=== PATIENT | female | born 1980 | race Caucasian/White ===

== ENCOUNTER 2018-05-10 13:42 | Emergency (ER) | payer MEDICAID ==
[~2018-05-10 13:42] MED LIST: AMOX-559 PO; DOXY-179 PO; KET10 PO
--- NOTE | 2018-05-10 14:33 | ER Report ---
History and Physical Time Seen By MD: 14:33 HPI/ROS CHIEF COMPLAINT: Right ankle pain HISTORY OF PRESENT ILLNESS: 37-year-old female patient presents to emergency room with complaint of right ankle pain. Patient states she's been having pain for the last 2-6 weeks. She states that pain often will occur at night. She states the pain does come and go. She states the pain is from the medial aspect of the ankle up approximately 10 cm. She states that sometimes she has pain with driving. She denies having any injury to the ankle. She states that nothing seems to make the pain better or worse. Patient states she is not taking any medication for this. She states that she is not sure why she is having so much p ain. REVIEW OF SYSTEMS: Respiratory: No cough, no dyspnea. Cardiovascular: No chest pain, no palpitations. Gastrointestinal: No vomiting, no abdominal pain. Musculoskeletal: As noted above Allergies: Coded Allergies: No Known Drug Allergies (Unverified , 06/25/16) Home Meds Active Scripts Diclofenac Sodium (DICLOFENAC SODIUM) 75 Mg Tablet.dr, 75 MG PO BID, #20 TAB Prov:KATIE LAUREN 05/10/18 Amoxicillin/Pot Clav 875-125 Mg Tab (AUGMENTIN 875-125 TABLET) 1 Each Tablet, 1 TAB PO Q12H, #20 TAB Prov:KATIE LAUREN 06/25/16 Past Medical/Surgical History Patient has a past medical history of frequent UTI, bipolar. Patient denies any surgical history. Reviewed Nurses Notes: Yes Hx Smoking: Yes Hx Substance Use Disorder: No Hx Alcohol Use: No Constitutional Vital Sign - Last 24 Hours 05/10/18 14:50 Temp 98.3 Pulse 94 Resp 18 B/P (MAP) 125/89 Pulse Ox 94 O2 Delivery Room Air Physical Exam General Appearance: The patient is alert, has no immediate need for airway protection and no current signs of toxicity. Respiratory: Chest is non tender, lungs are clear to auscultation. Cardiac: regular rate and rhythm Gastrointestinal: Abdomen is soft and non tender, no masses, bowel sounds normal. Musculoskeletal: Neck: Neck is supple and non tender. Extremities have full range of motion and are non tender. Patient has no tenderness, no swelling noted of the right ankle. There is no bruising noted. Patient had good strength with flexion and extension. Skin: No rashes or lesions. DIFFERENTIAL DIAGNOSIS: After history and physical exam differential diagnosis was considered for fracture, gout, strain. Medical Decision Making EKG/Imaging Imaging Right ankle, 3 views. HISTORY: Ankle pain and locking. COMPARISON: None. Minimal chronic appearing trabecular irregularities are present in the inferior tip of the medial malleolus. The bones, joints, and soft tissues are otherwise unremarkable. No widening of the ankle mortise. No acute fractures are identified. IMPRESSION: Negative for acute bony abnormality. Report Dictated By: Fernandez Rdz MD at 05/10/2018 2:43 PM Report E-Signed By: Fernandez Rdz MD at 05/10/2018 2:45 PM ED Course/Re-evaluation ED Course Patient was admitted to an exam room, history and physical were obtained. The differential diagnoses were considered. On examination patient had no tenderness of the right medial ankle. An x-ray was done which was negative. I discussed the findings with the patient. We will go ahead and place her in a walking boot. After that patient states she is having difficult time walking without requested some crutches. Patient was given crutches. She will be discharged home. I would like her to follow-up with orthopedics. Patient also given a prescription for diclofenac which she is to take twice a day. Patient did have a dose of Toradol here in the emergency room which she tolerated well. Decision to Disposition Date: May 10, 2018 Decision to Disposition Time: 15:21 Depart Departure Latest Vital Signs Vital Signs Date Time Temp Pulse Resp B/P (MAP) Pulse Ox O2 Delivery O2 Flow Rate FiO2 05/10/18 14:50 98.3 94 18 125/89 94 Room Air Impression: Primary Impression: Ankle pain Condition: Improved Disposition: HOME OR SELF-CARE Referrals: ANGIE HANNAH MD New Scripts Diclofenac Sodium (DICLOFENAC SODIUM) 75 Mg Tablet. 75 MG PO BID, #20 TAB Prov: KATIE LAUREN 05/10/18 Patient Instructions: GENERAL ER DISCHARGE INSTRUCTIONS Additional Instructions: Limit activity by pain. Follow up with [facility]. Take medication as prescribed, don't take any Ibuprofen, Naproxen, Aleve or Advil. Return to the ER if condition worsens. Ice the ankle 2-3 times a day. Wear the walking boot when you are up moving around, except when showering. Problem Qualifiers Primary Impression: Ankle pain Chronicity: acute Laterality: right Qualified Codes: M25.571 - Pain in right ankle and joints of right foot KATIE LAUREN May 10, 2018 14:33
[2018-05-10 14:50] VITALS: BP 125/89
--- NOTE | 2018-05-10 14:50 | RADIOLOGY IMAGING REPORT ---
FACILITY: [facility] PATIENT NAME: Claudia Merritt : 1980 MR: [id number] V: [id number] EXAM DATE: ORDERING PHYSICIAN: KATIE LAUREN TECHNOLOGIST: Location: [facility] [place] Patient: Claudia Merritt : 1980 Visit/Account:[id number] Date of Sevice: 05/10/2018 Right ankle, 3 views. HISTORY: Ankle pain and locking. COMPARISON: None. Minimal chronic appearing trabecular irregularities are present in the inferior tip of the medial mal leolus. The bones, joints, and soft tissues are otherwise unremarkable. No widening of the ankle mort ise. No acute fractures are identified. IMPRESSION: Negative for acute bony abnormality. Report Dictated By: Fernandez Rdz MD at 05/10/2018 2:43 PM Report E-Signed By: Fernandez Rdz MD at 05/10/2018 2:45 PM WSN:[id number]
[2018-05-10] MEDS ORDERED: DICL-195 PO (15:25)
[2018-05-10] MEDS ORDERED: KETOROLAC 30 MG/ML VIAL IM ONE (15:50)
== END 2018-05-10 16:43 | disposition home or self-care (01) ==
LOC: ER 14:36
DX: M25.571 Pain in right ankle and joints of right foot (principal)
CPT/HCPCS: 73610; 96372; 99283; J1885